=== PATIENT | female | born 1950 | race Caucasian/White ===

== ENCOUNTER 2017-08-01 10:49 | Emergency (ER) | payer MEDICARE | END 2017-08-01 12:48 | disposition home or self-care (01) | LOC: ER 10:49 | DX: M54.2 Cervicalgia (principal); Z95.5 Presence of coronary angioplasty implant and graft; Z91.041 Radiographic dye allergy status; Z88.8 Allergy status to other drugs, medicaments and biological substances; Z91.09 Other allergy status, other than to drugs and biological substances | CPT/HCPCS: 72040; 96372; 99283; J2360 ==